=== PATIENT | female | born 1950 | race Caucasian/White ===

== ENCOUNTER 2021-09-08 13:14 | Emergency (ER) | payer OTHER, MEDICARE ==
[~2021-09-08] VITALS: Ht 149.9 cm; Wt 55.8 kg
== END 2021-09-08 15:30 | disposition home or self-care (01) ==
LOC: ED 13:14
DX: S16.1XXA Strain of muscle, fascia and tendon at neck level, initial encounter (principal); R51.9 Headache, unspecified; Z88.5 Allergy status to narcotic agent; V48.0XXA Car driver injured in noncollision transport accident in nontraffic accident, initial encounter
CPT/HCPCS: 36415; 70450; 72125; 80053; 82150; 82553; 83605; 83690; 85025; 86850; 86900; 86901; G0480; J1885; J2550